=== PATIENT | female | born 1940 | race Caucasian/White ===

== ENCOUNTER 2017-04-27 10:31 | Inpatient (IN) | payer OTHER ==
[~2017-04-27] VITALS: Ht 160 cm; Wt 62.2 kg
[~2017-04-27 10:31] MED LIST: ALPR0.5T2 PO; ASPI81CT89 PO; ATOR10TA PO; CAR30 PO; DOCU-67 PO; FURO-572 PO; GABA100C PO; METF500T2 PO; METO-50 PO; VAS10 PO; WARF-18 PO; WARF1TAB PO
[2017-04-27 10:47] VITALS: BP 205/103
--- NOTE | 2017-04-27 10:51 | NUR ---
Patient ambulated to bed 6 with family. RN evaluating patient at bedside.
[2017-04-27] MEDS ORDERED: NITROGLYCERIN 0.4 MG TAB SL ONE (11:00)
--- NOTE | 2017-04-27 11:01 | NUR ---
PT PRESENTS TO ER W/C/O CHEST PAIN X3 DAYS. HX DM, HTN, ARTHRITIS. DENIES N/V/D; SKIN IS PINK/WARM/DRY; AAOX4 WITH EVEN AND STEADY GAIT; LUNGS CLEAR BL; HR EVEN AND REGULAR; PT DENIES ANY FEVER, SOB, OR COUGH AT THIS TIME; PATIENT STATES PAIN OF 7/10 AT THIS TIME; VSS; PATIENT POSITIONED FOR COMFORT; HOB ELEVATED; BEDRAILS UP X2; BED DOWN. ER MD MADE AWARE OF PT STATUS.
[2017-04-27 11:21] LABS: BASOPHILS # (AUTO) 0.2 K/uL (0.00-0.22); BASOPHILS % (AUTO) 3.1 % (0.0-2.0); EOSINOPHILS # (AUTO) 0.2 K/uL (0-0.4); EOSINOPHILS % (AUTO) 2.9 % (0.0-4.0); HEMATOCRIT 40.2 % (36-48); HEMOGLOBIN 13.1 g/dL (12.0-16.0); LYMPHOCYTES # (AUTO) 1.1 K/uL (2.5-16.5); LYMPHOCYTES % (AUTO) 19.6 % (20.5-51.1); MEAN CORPUSCULAR HEMOGLOBIN 30 pg (27-31); MEAN CORPUSCULAR HGB CONC 33 g/dL (33-37); MEAN CORPUSCULAR VOLUME 93 fL (80-94); MONOCYTES # (AUTO) 0.4 K/uL (0.8-1.0); MONOCYTES % (AUTO) 8.3 % (1.7-9.3); NEUTROPHILS # (AUTO) 3.5 K/uL (1.8-7.7); NEUTROPHILS % (AUTO) 66.1 % (42.2-75.2); PLATELET COUNT (AUTO) 254 K/uL (140-450); RED BLOOD CELL COUNT(AUTO) 4.33 MIL/uL (4.20-5.40); WHITE BLOOD COUNT (AUTO) 5.4 K/uL (4.8-10.8)
[2017-04-27 11:38] LABS: ANION GAP 13.1 (8-16); CARBON DIOXIDE 26.8 mmol/L (21-32); CHLORIDE 106 mmol/L (98-107); CREATININE 0.8 mg/dL (0.6-1.3); GLUCOSE 130 mg/dL (74-106); POTASSIUM 3.9 mmol/L (3.5-5.1); SODIUM SERUM 142 mmol/L (136-145); UREA NITROGEN, BLOOD 13 mg/dL (7-18)
[2017-04-27 11:44] LABS: ALBUMIN 4.3 g/dL (3.4-5.0); ASPARTATE AMINOTRANSFERASE 25 U/L (15-37); TOTAL BILIRUBIN 0.7 mg/dL (0.0-1.0)
[2017-04-27] MEDS ORDERED: ALPR0.5T2 PO (12:50)
[2017-04-27] MEDS ORDERED: AMIO200T2 PO (12:50)
[2017-04-27] MEDS ORDERED: DIGO0.1211 PO (12:50)
[2017-04-27] MEDS ORDERED: DOCU-246 PO (12:50)
[2017-04-27] MEDS ORDERED: [UNRECOGNIZED DRUG - CODE] PO (12:50)
[2017-04-27] MEDS ORDERED: ATOR10TA PO (12:50)
[2017-04-27] MEDS ORDERED: SENN-58 PO (12:50)
[2017-04-27] MEDS ORDERED: CARV12.5 PO (12:50)
[2017-04-27] MEDS ORDERED: [UNRECOGNIZED DRUG - CODE] PO (12:50)
[2017-04-27] MEDS ORDERED: WARF5TAB1 PO (12:50)
[2017-04-27] MEDS ORDERED: LISI10TA2 PO (12:50)
[2017-04-27] MEDS ORDERED: GABA100C PO (12:50)
[2017-04-27] MEDS ORDERED: METF500T PO (12:50)
[2017-04-27] MEDS ORDERED: MORPHINE SULFATE 2 MG/ML SYR IVP PRN (13:00)
[2017-04-27] MEDS ORDERED: ONDANSETRON 4 MG/2 ML VIAL IVP PRN (13:00)
[2017-04-27] MEDS ORDERED: LORazepam 2 MG/ML VIAL IVP PRN (13:00)
[2017-04-27] MEDS ORDERED: DEXTROSE 50% 50 ML SYR IVP PRN (13:10)
--- NOTE | 2017-04-27 13:30 | NUR ---
PT RESTING COMFORTABLY ON BED AT THIS TIME WITH FAMILY AT BEDSIDE, NO ACUTE DISTRESS NOTED AT THIS TIME, NO C/O CP, MINIMAL BACK PAIN 09/25, PENDING ADMIT AWAITING ROOM AVAILABILITY, FAMILY/PT MADE AWARE, WILL CONTINUE TO MONITOR
[2017-04-27] MEDS ORDERED: FUROSEMIDE 40 MG/4 ML VIAL IVP ONE (15:35)
[2017-04-27] MEDS ORDERED: POTASSIUM CHLORIDE 10 MEQ TABER PO ONE (15:35)
--- NOTE | 2017-04-27 15:50 | NUR ---
Patient will be admitted to care of DR WHITTINGTON. Admited to TELE. Will go to room 111B. Belongings list completed. Report to ELSIE SALAZAR.
[2017-04-27 16:50] VITALS: BP 177/84
--- NOTE | 2017-04-27 16:50 | NUR ---
PATIENT ARRIVED ON UNIT ON RCONRAD FROM ER. PATIENT IS AAOX4 AND SHOWS NO S/S OF ACUTE DISTRESS ON O2@ 2L NC. PATIENT DENIES PAIN AT THIS TIME. PATIENT ON TELE MONITOR. IV NOTED ON THE R AC. PATIENT EDUCATED ON USING CALL LIGHT WHEN ASSISTANCE IS NEEDED. PATIENT BED IS IN LOW POSITION. SKIN IS INTACT. PATIENT EDUCATED ABOUT POC FOR TODAY. WILL CONTINUE TO MONITOR.
[2017-04-27] MEDS: BLOOD GLUCOSE MONITORING 1 DEV DEV FS SCH ×2 (16:52→20:30)
[2017-04-27] MEDS ORDERED: CARVEDILOL 12.5 MG TAB PO SCH (17:00)
[2017-04-27] MEDS ORDERED: WARFARIN 5 MG TAB PO SCH (17:00)
[2017-04-27] MEDS: INSULIN LISPRO SLIDING SCALE 100 UNITS/ML VIAL SUBQ PRN (17:33)
[2017-04-27] MEDS: metFORMIN 500 MG TAB PO SCH (17:37)
--- NOTE | 2017-04-27 17:40 | NUR ---
ADMINISTERED SCHEDULED MEDICATIONS. PATIENT TOLERATED WELL. PATIENT DENIES PAIN AND SOB, WILL CONTINUE TO MONITOR.
--- NOTE | 2017-04-27 19:14 | NUR ---
PATIENT ON TELE AND HR IS SB AT 38 BPM. PATIENT IS ASYMPTOMATIC, DENIES PAIN, AND SOB. NOTIFIED DR WEISS AND ORDERED TO TX TO ICU WITH EXTERNAL PACEMAKER, DC COREG, DIGOXIN AND AMIODARONE AND PLACE PARAMETERS TO HOLD LISINOPRIL WHEN SBP < [address]. [address] ORDERS AND ENDORSE PATIENT TO USAMA ZIMMERMAN.
[2017-04-27 19:15] VITALS: BP 157/77
--- NOTE | 2017-04-27 19:20 | NUR ---
PATIENT AND FAMILY AWARE OF TX TO ICU DUE TO SINUS JOHANA HR. USAMA ZIMMERMAN WAS GIVEN REPORT AT BEDSIDE.
--- NOTE | 2017-04-27 19:30 | NUR ---
RECEIVED REPORT FROM AM NURSE. FAMILY AT BEDSIDE. PT RESTING IN BED, AOX4, ABLE TO VERBALIZE NEEDS, AMBULATORY WITH 1PERSON MINIMAL ASSIST. PT DENIES CHEST PAIN OR SOB. O2 2L NC ON, SPO2 96%, RR [address] UNLABORED. COOK DINNER IN PLACE. IV ACCESS ASYMPTOMATIC, PATENT AND INTACT, SALINE LOCKED AT THIS TIME. DISCUSSED AND REVIEWED PLAN OF CARE WITH PT. PT TO BE TRANSFERRED TO ICU. PT AND FAMILY VERBALIZED UNDERSTANDING. ALL NEEDS MET. SAFETY MEASURES ENSURED. CALL LIGHT WITHIN REACH. WILL CONTINUE TO MONITOR.
--- NOTE | 2017-04-27 20:29 | NUR ---
RECEIVED REPORT FROM TELE NURSE ELSIE FORRESTER. PT WILL BE TRANSFERRED TO ICU 5.
--- NOTE | 2017-04-27 20:30 | NUR ---
BLOOD SUGAR 69 AT THIS TIME. PT AWAKE AND ALERT, ASYMPTOMATIC. PT GIVEN EVENING SNACKS AT THIS TIME.
--- NOTE | 2017-04-27 20:55 | NUR ---
PT TRANSFERRED TO ICU WITH EXTERNAL PACEMAKER, CARDIAC MONITORING AND O2 2L NC ORDERED. PT TOLERATED WELL. ENDORSED PLAN OF CARE TO ICU NURSE.
--- NOTE | 2017-04-27 20:55 | NUR ---
RECEIVED PT IN THE UNIT VIA [place]. DAUGHTER AT BEDSIDE. PT IS AWAKE, ALERT, ORIENTED. NO SIGNS OF DISTRESS AT THIS TIME. ATTACHED TO GOLF COURSE KEEPER, PULSE OXIMETER. O2 AT 2LPM VIA NASAL CANNULA. IV ACCESS AT RIGHT AC 20G , SALINE LOCK, PATENT, INTACT. PT PLACE COMFORTABLY ON BED. STANDBY EXTERNAL PACER AT BEDSIDE. PT DENIES PAIN AT THIS TIME. BED IN LOW POSITION, SAFETY MEASURE ENSURE. WILL CONTINUE TO MONITOR.
[2017-04-27 21:00] VITALS: BP 175/84
[2017-04-27] MEDS ORDERED: GABAPENTIN 100 MG CAP PO SCH (21:00)
--- NOTE | 2017-04-27 21:16 | NUR ---
BSL 107MG/DL AT THIS TIME. WILL CONTINUE TO MONITOR.
[2017-04-27] MEDS: ALPRAZolam 0.5 MG TAB PO SCH (21:17)
[2017-04-27] MEDS: ATORVASTATIN 20 MG TAB PO SCH (21:18)
[2017-04-27] MEDS ORDERED: hydrALAZINE 20 MG/ML VIAL IVP PRN (21:20)
[2017-04-27] MEDS: NITROGLYCERIN 0.4 MG/HR PATCH TD SCH (21:57)
[2017-04-27 22:00] VITALS: BP 169/80
--- NOTE | 2017-04-27 23:53 | NUR ---
PT ASLEEP AT THIS TIME. NO SIGNS OF DISTRESS NOTED.
[2017-04-28] VITALS (9 sets, daily range): BP systolic 102–156; BP diastolic 50–87
--- NOTE | 2017-04-28 00:18 | NUR ---
NITRO PATCH REMOVED. BP 93/56. PT ASLEEP AT THIS TIME. WILL CONTINUE TO MONITOR.
--- NOTE | 2017-04-28 02:56 | NUR ---
PT ASLEEP AT THIS TIME. WILL CONTINUE TO MONITOR.
--- NOTE | 2017-04-28 05:11 | NUR ---
PT ASLEEP AT THIS TIME. WILL CONTINUE TO MONITOR.
[2017-04-28 05:13] LABS: BASOPHILS # (AUTO) 0.2 K/uL (0.00-0.22); BASOPHILS % (AUTO) 2.4 % (0.0-2.0); EOSINOPHILS # (AUTO) 0.1 K/uL (0-0.4); EOSINOPHILS % (AUTO) 1.9 % (0.0-4.0); HEMOGLOBIN 13.2 g/dL (12.0-16.0); LYMPHOCYTES # (AUTO) 1.7 K/uL (2.5-16.5); LYMPHOCYTES % (AUTO) 24.9 % (20.5-51.1); MEAN CORPUSCULAR HEMOGLOBIN 30 pg (27-31); MEAN CORPUSCULAR HGB CONC 33 g/dL (33-37); MEAN CORPUSCULAR VOLUME 92 fL (80-94); MONOCYTES # (AUTO) 0.7 K/uL (0.8-1.0); NEUTROPHILS % (AUTO) 60.8 % (42.2-75.2); PLATELET COUNT (AUTO) 303 K/uL (140-450); RED BLOOD CELL COUNT(AUTO) 4.33 MIL/uL (4.20-5.40); RED CELL DISTRIBUTION WIDTH 13.6 % (11.6-13.7); WHITE BLOOD COUNT (AUTO) 6.7 K/uL (4.8-10.8)
[2017-04-28 05:27] LABS: ANION GAP 11.3 (8-16); CARBON DIOXIDE 29.6 mmol/L (21-32); CHLORIDE 104 mmol/L (98-107); CREATININE 0.9 mg/dL (0.6-1.3); GLUCOSE 100 mg/dL (74-106); POTASSIUM 3.9 mmol/L (3.5-5.1); SODIUM SERUM 141 mmol/L (136-145); UREA NITROGEN, BLOOD 16 mg/dL (7-18)
[2017-04-28] MEDS: BLOOD GLUCOSE MONITORING 1 DEV DEV FS SCH ×4 (06:37→20:14)
--- NOTE | 2017-04-28 07:19 | NUR ---
REPORT GIVEN TO ELSIE CARR FOR CONTINUITY OF CARE.
--- NOTE | 2017-04-28 07:20 | NUR ---
RECEIVED REPORT FROM ELSIE LAU. NO SIGNS OF ACUTE DISTRESS AT THIS TIME. PT DENIES PAIN. PT IS AAOX4. PT IS ON O2 2L/MIN NC. IV TO RIGHT AC #20, PATENT AND INTACT, SL. PT IS CURRENTLY SINUS BRADYCARDIA ON THE MONITOR, ASYMPTOMATIC. SKIN IS INTACT. SAFETY PRECAUTIONS IN PLACE WITH BED IN LOWEST POSITION AND SIDE RAILS UP. CALL LIGHT WITHIN REACH. WILL CONTINUE TO MONITOR. Addendum: 04/28/17 at 0918 by Meg Gaspar RN CHARTED PT IS SINUS BRADYCARDIA ON THE MONITOR IN ERROR, PT IS A FIB. Addendum: 04/28/17 at 1120 by Meg Gaspar RN NOTED AMPUTATION TO LEFT THIRD FINGER
--- NOTE | 2017-04-28 07:59 | NUR ---
RECEIVED CALLBACK FROM DR. ADAM, NEW ORDERS RECEIVED.
--- NOTE | 2017-04-28 07:59 | NUR ---
PAGED DR. WHITTINGTON REGARDING LOW MAGNESIUM: 1.7, INFORMED DR. ADAM IS BOX PRINTING MACHINE OPERATOR. AWAITING CALLBACK.
[2017-04-28] MEDS: metFORMIN 500 MG TAB PO SCH ×2 (08:13→16:52)
[2017-04-28] MEDS: NITROGLYCERIN 0.4 MG/HR PATCH TD SCH (08:14)
[2017-04-28] MEDS: DOCUSATE SODIUM 100 MG GELCAP PO SCH (08:14)
[2017-04-28] MEDS: MULTIVITAMIN/MINERALS 1 TAB PO SCH (08:14)
--- NOTE | 2017-04-28 08:19 | NUR ---
CHECKED HR: 68, BP: 121/50. ADMINISTERED MEDICATION ORDERED. PT TOLERATED WELL.
--- NOTE | 2017-04-28 08:41 | NUR ---
PATIENT HAS BEEN SCREENED AND CATEGORIZED MODERATE NUTRITION RISK. PATIENT WILL BE SEEN WITHIN 3-5 DAYS OF ADMISSION. 04/30/17-05/02/[address]
[2017-04-28] MEDS ORDERED: NITROGLYCERIN 0.4 MG/HR PATCH TD SCH (09:00)
[2017-04-28] MEDS ORDERED: LISINOPRIL 10 MG TAB PO SCH (09:00)
[2017-04-28] MEDS ORDERED: AMIODARONE 200 MG TAB PO SCH (09:00)
[2017-04-28] MEDS ORDERED: ENOXAPARIN 40 MG/0.4 ML SYR SUBQ SCH (09:00)
[2017-04-28] MEDS ORDERED: DIGOXIN 0.125 MG TAB PO SCH (09:00)
[2017-04-28] MEDS ORDERED: MAG SULF 2000 MG/WATER PREMIX 50 ML IV SCH (09:00)
--- NOTE | 2017-04-28 09:55 | NUR ---
PT TOLERATED MEDS WELL. PT'S DAUGHTER PRESENT AT BEDSIDE.
--- NOTE | 2017-04-28 10:27 | NUR ---
DR. WHITTINGTON IN TO SEE PT. WILL FOLLOW UP ON ORDERS.
[2017-04-28] MEDS: INSULIN LISPRO SLIDING SCALE 100 UNITS/ML VIAL SUBQ PRN (11:22)
--- NOTE | 2017-04-28 11:23 | NUR ---
PT TOLERATED MEDS WELL.
--- NOTE | 2017-04-28 12:11 | NUR ---
CM NOTE INITIAL REVIEW FAXED TO [facility] / FAX# [phone], ATTN: ANNY #[phone]
--- NOTE | 2017-04-28 12:41 | NUR ---
PT. BECOME DIAPHORETIC BP DROP TO83/66 HR 63
--- NOTE | 2017-04-28 13:06 | NUR ---
CHECKED BP: 107/60, HR: 56. PT IS ASYMPTOMATIC. DR. WEISS AND DR. ADAM AWARE OF PT'S RECENT CHANGE IN VS. NEW ORDERS RECEIVED.
[2017-04-28] MEDS ORDERED: NOREPINEPHRINE 4 MG in DEXTROSE 5% 250 ML IV PRN (13:10)
[2017-04-28 13:13] LABS: CREATINE KINASE MB 0.4 ng/mL (0-3.6)
[2017-04-28] MEDS ORDERED: NACL 0.9% 500 ML IV SCH (13:20)
--- NOTE | 2017-04-28 13:41 | NUR ---
DR. WEISS IN TO SEE PT. WILL FOLLOW UP ON ORDERS
[2017-04-28] MEDS ORDERED: PANTOPRAZOLE 40 MG INJ VIAL IVP SCH (13:54)
[2017-04-28] MEDS: NACL 0.9% 1,000 ML IV SCH (14:17)
--- NOTE | 2017-04-28 14:21 | NUR ---
PT TOLERATED MEDS WELL.
[2017-04-28 14:42] LABS: BASOPHILS # (AUTO) 0.1 K/uL (0.00-0.22); BASOPHILS % (AUTO) 1.5 % (0.0-2.0); EOSINOPHILS # (AUTO) 0.1 K/uL (0-0.4); EOSINOPHILS % (AUTO) 1.6 % (0.0-4.0); HEMATOCRIT 40.7 % (36-48); HEMOGLOBIN 13.4 g/dL (12.0-16.0); LYMPHOCYTES # (AUTO) 1.1 K/uL (2.5-16.5); LYMPHOCYTES % (AUTO) 13.6 % (20.5-51.1); MEAN CORPUSCULAR HEMOGLOBIN 30 pg (27-31); MEAN CORPUSCULAR HGB CONC 33 g/dL (33-37); MEAN CORPUSCULAR VOLUME 92 fL (80-94); MONOCYTES # (AUTO) 0.3 K/uL (0.8-1.0); MONOCYTES % (AUTO) 3.6 % (1.7-9.3); NEUTROPHILS # (AUTO) 6.6 K/uL (1.8-7.7); NEUTROPHILS % (AUTO) 79.7 % (42.2-75.2); PLATELET COUNT (AUTO) 284 K/uL (140-450); RED BLOOD CELL COUNT(AUTO) 4.43 MIL/uL (4.20-5.40); RED CELL DISTRIBUTION WIDTH 13.6 % (11.6-13.7); WHITE BLOOD COUNT (AUTO) 8.2 K/uL (4.8-10.8)
--- NOTE | 2017-04-28 14:53 | NUR ---
CHECKED ON PT. RESTING AT THIS TIME, AROUSABLE. CALL LIGHT WITHIN REACH. WILL CONTINUE TO MONITOR.
[2017-04-28 14:55] LABS: CARBON DIOXIDE 30.3 mmol/L (21-32); CHLORIDE 105 mmol/L (98-107); CREATININE 1.2 mg/dL (0.6-1.3); GLUCOSE 107 mg/dL (74-106); POTASSIUM 4.3 mmol/L (3.5-5.1); SODIUM SERUM 141 mmol/L (136-145); UREA NITROGEN, BLOOD 23 mg/dL (7-18)
--- NOTE | 2017-04-28 16:53 | NUR ---
PT TOLERATED MEDS WELL. FRIEND PRESENT AT BEDSIDE. CALL LIGHT WITHIN REACH.
[2017-04-28] MEDS ORDERED: WARFARIN 5 MG TAB PO SCH (17:00)
--- NOTE | 2017-04-28 17:55 | NUR ---
PT UP AND EATING DINNER WITH NO ISSUES. PT'S FRIEND AND DAUGHTER PRESENT AT BEDSIDE.
--- NOTE | 2017-04-28 19:04 | NUR ---
ENDORSED CARE TO ELSIE CARR. PT IN STABLE CONDITION.
--- NOTE | 2017-04-28 19:30 | NUR ---
ASSUMED CARE OF PT.INITIAL ASSESSMENT COMPLETED.PT AWAKE ALERT AND ORIENTED. ATRIAL FIB ON MONITOR.ON 02NC AT 2LPM,NO SOB NOTED. PERIPHERAL IV TO RT AC G20 INTACT INFUSING ORDERED IVF.PT ABLE TO MOVE ALL EXTREMITIES WITH MILD WEAKNESS TO BLE.PT DENIES CHEST PAIN.WILL CONTINUE TO MONITOR PT.
[2017-04-28] MEDS: ATORVASTATIN 20 MG TAB PO SCH (20:11)
[2017-04-28] MEDS: ALPRAZolam 0.5 MG TAB PO SCH (20:11)
[2017-04-28] MEDS ORDERED: GABAPENTIN 300 MG CAP PO SCH (21:00)
--- NOTE | 2017-04-28 21:00 | NUR ---
ALL DUE MEDS GIVEN.FAMILY AT BEDSIDE.UPDATED ON PTS PRESENT CONDITION AND PLAN OF CARE.QUESTIONS ANSWERED
[2017-04-29] VITALS: BP 113/67
--- NOTE | 2017-04-29 | NUR ---
PT ASLEEP;EASILY AROUSABLE.DENIES CHEST PAIN.NO RESP DISTRESS NOTED. STILL AFIB ON MONITOR
[2017-04-29] MEDS: NACL 0.9% 1,000 ML IV SCH (01:35)
--- NOTE | 2017-04-29 01:43 | NUR ---
pt asleep;easily arousable.no signs of distress noted.denies chest pain.repositioned
[2017-04-29 04:00] VITALS: BP 114/62
--- NOTE | 2017-04-29 04:00 | NUR ---
pts condition remains unchanged.no sob noted.denies chest pain.repositioned
--- NOTE | 2017-04-29 06:27 | NUR ---
pt asleep;voided freely using bedpan.still on 02nc at 2lpm.no resp distress noted.denies pain
[2017-04-29] MEDS ORDERED: PANTOPRAZOLE 40 MG TABEC PO SCH (06:30)
--- NOTE | 2017-04-29 07:15 | NUR ---
RECEIVED REPORT FROM LILLY. ASSUMED CARE OF PT. PT CURRENTLY SLEEPING COMFORTABLY, BUT EASILY AROUSABLE. A. FIB ON MONITOR. ON 02 2LPM / NC, O2 SAT 96%. DENIES CHEST PAIN. NO SOB OR ACUTE DISTRESS NOTED. PERIPHERAL IV TO RIGHT AC INTACT AND INFUSING ORDERED IVF. ABD SOFT, NON-TENDER, BOWEL SOUNDS PRESENT X 4 QUADRANTS. ABLE TO MOVE ALL EXTREMITIES. WILL CONTINUE TO MONITOR.
[2017-04-29 07:23] LABS: PROTHROMBIN TIME 23.5 secs (10.8-13.4)
[2017-04-29] MEDS: BLOOD GLUCOSE MONITORING 1 DEV DEV FS SCH ×2 (07:44→11:39)
[2017-04-29 08:00] VITALS: BP 138/60
[2017-04-29] MEDS: DOCUSATE SODIUM 100 MG GELCAP PO SCH (08:18)
[2017-04-29] MEDS: MULTIVITAMIN/MINERALS 1 TAB PO SCH (08:18)
[2017-04-29] MEDS: metFORMIN 500 MG TAB PO SCH (08:18)
--- NOTE | 2017-04-29 08:20 | NUR ---
ADMINISTERED MEDICATIONS ORDERED. PT TOLERATED WELL. NO PROBLEM SWALLOWING. WILL CONTINUE TO MONITOR.
[2017-04-29] MEDS: NITROGLYCERIN 0.4 MG/HR PATCH TD SCH (08:29)
--- NOTE | 2017-04-29 08:35 | NUR ---
RECEIVED ON SUPPLEMENTAL OXYGEN AT 2 LPM VIA NC ON AND FUNCTIONING WELL TOLERATING WITHOUT INCIDENT AWAKE AND ALERT RESPONSIVE TO FABRIC LAY OUT WORKER VERBAL COMMANDS
[2017-04-29] MEDS ORDERED: LISINOPRIL 10 MG TAB PO SCH (09:00)
[2017-04-29] MEDS ORDERED: PROBIOTIC SCREEN 1 EA MISC MC PRN (09:50)
--- NOTE | 2017-04-29 10:04 | NUR ---
FAMILY AT BEDSIDE. PT. TALKING TO FAMILY. NO SOB OR ACUTE DISTRESS NOTED. WILL CONTINUE TO MONITOR.
--- NOTE | 2017-04-29 11:00 | NUR ---
VOIDED FREELY USING BEDPAN. URINE CLEAR, DARK YELLOW, NO SEDIMENTS NOTED. REPOSITIONED. PT TOLERATED WELL. NO SOB OR ACUTE DISTRESS NOTED. WILL CONTINUE TO MONITOR.
--- NOTE | 2017-04-29 11:50 | NUR ---
CM NOTE CONCURRENT REVIEW FAXED TO [facility] / FAX# [phone], ATTN: ANNY #[phone]
[2017-04-29 12:00] VITALS: BP 119/70
--- NOTE | 2017-04-29 13:06 | NUR ---
CHECKED ON PT. RESTING COMFORTABLY AT THIS TIME. DAUGHTER AT BEDSIDE. CALL LIGHT WITHIN REACH. WILL CONTINUE TO MONITOR.
--- NOTE | 2017-04-29 13:50 | NUR ---
DR. WEISS AT ICU TO SEE AND EXAMINE PT. SPOKE WITH DAUGHTER.
--- NOTE | 2017-04-29 13:55 | NUR ---
DR. WHITTINGTON AT ICU TO SEE AND EXAMINE PT. WILL F/U WITH NEW ORDERS.
--- NOTE | 2017-04-29 14:00 | NUR ---
PT VOIDED WITHOUT ANY DIFFICULTY. CLEANED AND REPOSITIONED. PT TOLERATED WELL. DAUGHTER AT BEDSIDE. NO SOB OR ACUTE DISTRESS NOTED.
[2017-04-29] MEDS ORDERED: ISOS10TA9 PO (14:10)
[2017-04-29] MEDS ORDERED: FURO-572 PO (14:12)
[2017-04-29 14:37] VITALS: BP 157/49
[2017-04-29 15:00] VITALS: BP 120/68
--- NOTE | 2017-04-29 16:30 | NUR ---
DISCHARGED PT HOME PER MD ORDER. NEW PRESCRIPTIONS: ISORDIL AND LASIX GIVEN. DISCHARGE INSTRUCTIONS/EDUCATION AND FOLLOW-UP INSTRUCTIONS WITH PCP AND DREDGE ENGINEER GIVEN. PERSONAL BELONGINGS CHECKED AND SIGNED BY DAUGHTER. PT DISCHARGED VIA WHEELCHAIR ACCOMPANIED BY DAUGHTER. PT WAS AAOX4. NO SOB OR ACUTE DISTRESS NOTED UPON DISCHARGE. Addendum: 04/29/17 at 1648 by Felicia Gibbs RN PT WAS DISCHARGED AT 1550.
== END 2017-04-29 15:50 | disposition home or self-care (01) | DRG 194 ==
LOC: MED 10:31 → MTU 12:59 → MIC 20:45
PROVIDERS: ADMIT Hospitalist; ATTEND Hospitalist
DX: I11.0 Hypertensive heart disease with heart failure (principal); R00.1 Bradycardia, unspecified; E83.42 Hypomagnesemia; E11.9 Type 2 diabetes mellitus without complications; I50.43 Acute on chronic combined systolic (congestive) and diastolic (congestive) heart failure; R07.9 Chest pain, unspecified; I25.2 Old myocardial infarction; I25.5 Ischemic cardiomyopathy; I25.10 Atherosclerotic heart disease of native coronary artery without angina pectoris; I48.2 Chronic atrial fibrillation; E78.5 Hyperlipidemia, unspecified; K21.9 Gastro-esophageal reflux disease without esophagitis; G89.29 Other chronic pain; I45.9 Conduction disorder, unspecified; I16.0 Hypertensive urgency; Z79.899 Other long term (current) drug therapy; Z79.01 Long term (current) use of anticoagulants; Z88.0 Allergy status to penicillin
CPT/HCPCS: 36415; 71010; 72100; 80048; 80053; 80162; 82550; 82553; 82948; 83735; 83880; 84484; 85025; 85610; 85730; 87081; 93005; 96374; 99285; C9113; J1815; J1940; J2405; J3475; J3490; J7030; J7060; Q0092

== ENCOUNTER 2017-08-04 15:37 | Inpatient (IN) | payer OTHER ==
[~2017-08-04] VITALS: Ht 162.6 cm; Wt 69.4 kg
[~2017-08-04 15:37] MED LIST changes: -ASPI81CT89 PO; -CAR30 PO; +DOCU-246 PO; -DOCU-67 PO; +ISOS10TA9 PO; +LISI10TA2 PO; +METF500T PO; -METF500T2 PO; -METO-50 PO; +SENN-58 PO; -VAS10 PO; -WARF-18 PO; -WARF1TAB PO; +WARF5TAB1 PO; +[UNRECOGNIZED DRUG - CODE] PO; +[UNRECOGNIZED DRUG - CODE] PO
[2017-08-04 15:56] VITALS: BP 130/85
[2017-08-04] MEDS ORDERED: NACL 0.9% 1,000 ML IV ONE (16:10)
--- NOTE | 2017-08-04 16:15 | NUR ---
PATIENT PRESENTS TO ED WITH C/O MID UPPER ABD PAIN, N/V/D SINCE LAST NIGHT VOMITING X1 EPISODE, DIARRHEA X 6 EPISODES HX: HTN, DM, MS 2 YEARS AGO, HIGH CHOLESTEROL; PT STATES . DENIES N/V/D; SKIN IS PINK/WARM/DRY; AAOX4 WITH EVEN AND STEADY GAIT; LUNGS CLEAR BL; HR EVEN AND REGULAR; PT DENIES ANY FEVER, CP, SOB, OR COUGH AT THIS TIME; PATIENT STATES PAIN OF 7/10 AT THIS TIME; VSS; PATIENT POSITIONED FOR COMFORT; HOB ELEVATED; BEDRAILS UP X2; BED DOWN. ER MD MADE AWARE OF PT STATUS.
[2017-08-04 16:36] LABS: BASOPHILS # (AUTO) 0.3 K/uL (0.00-0.22); EOSINOPHILS # (AUTO) 0.1 K/uL (0-0.4); HEMATOCRIT 44.5 % (36-48); HEMOGLOBIN 14.2 g/dL (12.0-16.0); LYMPHOCYTES # (AUTO) 0.5 K/uL (2.5-16.5); MEAN CORPUSCULAR HEMOGLOBIN 29 pg (27-31); MEAN CORPUSCULAR HGB CONC 32 g/dL (33-37); MEAN CORPUSCULAR VOLUME 90 fL (80-94); MONOCYTES # (AUTO) 0.2 K/uL (0.8-1.0); NEUTROPHILS # (AUTO) 11.6 K/uL (1.8-7.7); PLATELET COUNT (AUTO) 338 K/uL (140-450); RED BLOOD CELL COUNT(AUTO) 4.95 MIL/uL (4.20-5.40); RED CELL DISTRIBUTION WIDTH 12.5 % (11.6-13.7); WHITE BLOOD COUNT (AUTO) 12.7 K/uL (4.8-10.8)
[2017-08-04 16:53] LABS: ALBUMIN 3.7 g/dL (3.4-5.0); ANION GAP 15.8 (8-16); ASPARTATE AMINOTRANSFERASE 16 U/L (15-37); CARBON DIOXIDE 26.6 mmol/L (21-32); CHLORIDE 104 mmol/L (98-107); CREATININE 0.9 mg/dL (0.6-1.3); GLUCOSE 132 mg/dL (74-106); POTASSIUM 4.4 mmol/L (3.5-5.1); SODIUM SERUM 142 mmol/L (136-145); UREA NITROGEN, BLOOD 20 mg/dL (7-18)
[2017-08-04 16:56] LABS: PROTHROMBIN TIME 11.6 secs (10.8-13.4)
[2017-08-04] MEDS ORDERED: DILTIAZEM 25 MG/5 ML VIAL IVP ONE (17:20)
[2017-08-04] MEDS ORDERED: ASPIRIN 81 MG TAB.CHEW PO ONE (17:20)
[2017-08-04] MEDS ORDERED: fentaNYL 0.05 MG/ML VIAL IM ONE (17:25)
[2017-08-04 17:29] LABS: APPEARANCE,URINE CLEAR (CLEAR); BILIRUBIN,URINE 1+ (NEGATIVE); BLOOD, URINE NEGATIVE (NEGATIVE); COLOR,URINE YELLOW (YELLOW); LEUKOCYTE ESTERASE ,URINE NEGATIVE (NEGATIVE); NITRITE, URINE NEGATIVE (NEGATIVE); PH,URINE 6.5 (5.0-9.0); UGLUCOSE NEGATIVE (NEGATIVE)
[2017-08-04] MEDS ORDERED: LORazepam 2 MG/ML VIAL IVP PRN (18:20)
[2017-08-04] MEDS ORDERED: ACETAMINOPHEN 325 MG TAB PO PRN (18:20)
[2017-08-04] MEDS ORDERED: MORPHINE SULFATE 4 MG/ML SYR IVP PRN (18:20)
[2017-08-04] MEDS ORDERED: MORPHINE SULFATE 2 MG/ML SYR IVP PRN (18:20)
[2017-08-04] MEDS ORDERED: ONDANSETRON 4 MG/2 ML VIAL IVP PRN (18:20)
--- NOTE | 2017-08-04 19:09 | NUR ---
Patient will be admitted to care of DR SUAREZ. Admited to TELE. Will go to room 110B. Belongings list completed. Report to ELSIE DUNAWAY.
--- NOTE | 2017-08-04 19:20 | NUR ---
ADMITTED THIS 77 YEAR OLD FEMALE FROM [facility] WITH CC OF N/V, DIARRHEA AND MILD DIZZINESS, AMBULATED TO BED WITH MINIMAL ASSIST, ASSESSMENT DONE, VITAL SIGNS STABLE, A-FIB ON TELE, DENIES ANY PAIN, NO N/V AT THIS TIME, PT AAOX4, SURINAMESE SPEAKING ONLY, HX OBTAINED FROM WILLIAM DAUGHTER, ORIENTED TO ROOM AND CALL LIGHT, SAFETY MEASURES IN PLACE, CALL LIGHT WITHIN REACH.
[2017-08-04 19:25] LABS: PROTHROMBIN TIME 11.6 secs (10.8-13.4)
[2017-08-04 19:30] VITALS: BP 144/65
[2017-08-04] MEDS: GABAPENTIN 100 MG CAP PO SCH (20:54)
[2017-08-04] MEDS: ATORVASTATIN 20 MG TAB PO SCH (20:54)
[2017-08-04] MEDS: ISOSORBIDE DINITRATE 10 MG TAB PO SCH (20:54)
[2017-08-04] MEDS: DILTIAZEM 60 MG TAB PO SCH (20:54)
[2017-08-04] MEDS: ALPRAZolam 0.5 MG TAB PO SCH (20:55)
[2017-08-04] MEDS ORDERED: INFLUENZA VIRUS VACCINE QUAD 0.5 ML SYR IMVAC PRN (21:30)
--- NOTE | 2017-08-04 22:30 | NUR ---
AMBULATED TO BR WITH ASSIST, VOIDED FREELY, MONITORED CLOSELY.
[2017-08-05] VITALS: BP 117/67
--- NOTE | 2017-08-05 | NUR ---
PT SLEEPING, EASILY AROUSABLE, VITAL SIGNS STABLE, CONTROLLED A-FIB ON TELE, ASYMPTOMATIC, CONTINUE TO MONITOR CLOSELY.
[2017-08-05] MEDS ORDERED: INSULIN LISPRO SLIDING SCALE 100 UNITS/ML VIAL SUBQ PRN (01:05)
[2017-08-05] MEDS ORDERED: DEXTROSE 50% 50 ML SYR IVP PRN (01:05)
[2017-08-05 02:47] LABS: CREATINE KINASE MB 0.4 ng/mL (0-3.6)
[2017-08-05 04:00] VITALS: BP 119/62
--- NOTE | 2017-08-05 04:00 | NUR ---
PT SLEEPING, EASILY AROUSABLE, VITAL SIGNS STABLE, DENIES ANY PAIN, NO NAUSEA NOTED, ASSISTED BY TAX TECHNICIAN TO BR, MONITORED CLOSELY/
--- NOTE | 2017-08-05 05:50 | NUR ---
AM LABS DRAWN, BLOOD SUGAR CHECKED WITH 87 RESULT, DENIES ANY PAIN, NO N/V NOTED, NO EPISODE OF DIARRHEA THE WHOLE SHIFT, A-FIB ON TELE, MONITORED CLOSELY.
[2017-08-05] MEDS: BLOOD GLUCOSE MONITORING 1 DEV DEV FS SCH ×4 (07:01→20:06)
--- NOTE | 2017-08-05 07:10 | NUR ---
PT AWAKE, NO DISTRESS NOTED, REPORT GIVEN TO ESTER FOR CONTINUITY OF CARE.
[2017-08-05 07:12] LABS: BASOPHILS # (AUTO) 0.1 K/uL (0.00-0.22); EOSINOPHILS # (AUTO) 0.1 K/uL (0-0.4); EOSINOPHILS % (AUTO) 1.8 % (0.0-4.0); HEMOGLOBIN 11.9 g/dL (12.0-16.0); LYMPHOCYTES # (AUTO) 0.6 K/uL (2.5-16.5); LYMPHOCYTES % (AUTO) 10.5 % (20.5-51.1); MEAN CORPUSCULAR HEMOGLOBIN 30 pg (27-31); MEAN CORPUSCULAR HGB CONC 33 g/dL (33-37); MEAN CORPUSCULAR VOLUME 91 fL (80-94); MONOCYTES # (AUTO) 0.4 K/uL (0.8-1.0); NEUTROPHILS # (AUTO) 4.7 K/uL (1.8-7.7); NEUTROPHILS % (AUTO) 78.7 % (42.2-75.2); PLATELET COUNT (AUTO) 255 K/uL (140-450); RED BLOOD CELL COUNT(AUTO) 3.98 MIL/uL (4.20-5.40); RED CELL DISTRIBUTION WIDTH 12.8 % (11.6-13.7); WHITE BLOOD COUNT (AUTO) 5.9 K/uL (4.8-10.8)
--- NOTE | 2017-08-05 07:13 | NUR ---
RECEIVED REPORT FROM ASSISTANT PROFESSOR OF CHEMISTRY NURSE, PT IS RESTING IN BED A/OX4, AMBULATES WITH ASSIST, IV IS ON THE RT AC, PATENT, INTACT, FLUSHING WELL, HEP LOCK, SKIN IS INTACT, NO S/S OF RESPIRATORY DISTRESS OR DISCOMFORT NOTED, DISCUSSED PLAN OF CARE WITH PT, PT VERBALIZED UNDERSTANDING, SAFETY/FALL PRECAUTIONS ARE IN PLACE, CALL LIGHT IS WITHIN REACH, WILL CONTINUE TO MONITOR.
[2017-08-05 07:21] LABS: PROTHROMBIN TIME 12.1 secs (10.8-13.4)
[2017-08-05 07:29] LABS: ALBUMIN 3.1 g/dL (3.4-5.0); ANION GAP 11.6 (8-16); ASPARTATE AMINOTRANSFERASE 17 U/L (15-37); CARBON DIOXIDE 27.3 mmol/L (21-32); CHLORIDE 107 mmol/L (98-107); CREATININE 0.8 mg/dL (0.6-1.3); GLUCOSE 92 mg/dL (74-106); MAGNESIUM 1.8 mg/dL (1.8-2.4); POTASSIUM 3.9 mmol/L (3.5-5.1); SODIUM SERUM 142 mmol/L (136-145); UREA NITROGEN, BLOOD 18 mg/dL (7-18)
[2017-08-05 08:00] VITALS: BP 137/85
[2017-08-05] MEDS: LISINOPRIL 10 MG TAB PO SCH (08:19)
[2017-08-05] MEDS: DILTIAZEM 60 MG TAB PO SCH ×2 (08:19→20:06)
[2017-08-05] MEDS: ASPIRIN 81 MG TAB.CHEW PO SCH (08:19)
[2017-08-05] MEDS: ISOSORBIDE DINITRATE 10 MG TAB PO SCH ×2 (08:20→20:08)
--- NOTE | 2017-08-05 08:20 | NUR ---
DUE MEDICATIONS GIVEN, PT TOLERATED WELL, CALL LIGHT WITHIN REACH.
[2017-08-05] MEDS ORDERED: SENNA 8.6 MG TAB PO SCH (09:00)
--- NOTE | 2017-08-05 09:19 | NUR ---
PATIENT HAS BEEN SCREENED AND CATEGORIZED MODERATE NUTRITION RISK FOR GI PROBLEMS. PATIENT WILL BE SEEN WITHIN 3-5 DAYS OF ADMISSION. 08/07/17-08/09/[address]
[2017-08-05 10:33] LABS: CREATINE KINASE MB 0.3 ng/mL (0-3.6)
--- NOTE | 2017-08-05 10:34 | NUR ---
PT RESTING IN BED, NO S/S OF RESPIRATORY DISTRESS OR DISCOMFORT NOTED, FAMILY IS AT PT BEDSIDE, CALL LIGHT WITHIN REACH.
--- NOTE | 2017-08-05 10:43 | NUR ---
RECEIVED PHONE CALL FROM JUVENAL AT THE LAB, CURRENT TROPONIN IS 0.085, TROPONIN TRENDING DOWN.
[2017-08-05] MEDS ORDERED: DOCUSATE SODIUM 100 MG GELCAP PO SCH (11:00)
[2017-08-05 12:00] VITALS: BP 122/78
--- NOTE | 2017-08-05 12:30 | NUR ---
DR. Lorenzo CASAREZ HERE TO SEE PT.
--- NOTE | 2017-08-05 14:22 | NUR ---
CM NOTE INITIAL REVIEW FAXED TO [facility] / FAX# [phone], ATTN: JANUARY #[phone]
--- NOTE | 2017-08-05 14:50 | NUR ---
PT SLEEPING IN BED AT THIS TIME, PATIENT'S DAUGHTER IS AT BEDSIDE, CALL LIGHT WITHIN REACH.
[2017-08-05 16:00] VITALS: BP 128/76
--- NOTE | 2017-08-05 16:20 | NUR ---
PT SLEEPING IN BED AT THIS TIME.
[2017-08-05] MEDS ORDERED: WARFARIN 5 MG TAB PO SCH (17:00)
[2017-08-05] MEDS ORDERED: WARFARIN 5 MG, WARFARIN 1 MG PO SCH ×2 (17:00)
--- NOTE | 2017-08-05 19:15 | NUR ---
ENDORSED PT TO SPECIAL MAKEUP FX ARTIST INSTRUCTOR NURSE FOR CONTINUITY OF CARE, PT STABLE AT THIS TIME.
--- NOTE | 2017-08-05 19:16 | NUR ---
RECEIVED REPORT AT BEDSIDE FROM DAY SHIFT RN. PT IS A/OX4 ON ROOM AIR. PT HAS A 20G IV TO RIGHT AC, SL. SKIN INTACT. PT AMBULATES WITH ASSISTANCE. SAFETY PRECAUTIONS IN PLACE. UPDATED BOARD. VITAL SIGNS WITHIN NORMAL LIMITS. PT IN STABLE CONDITION, NO SIGNS OF DISTRESS NOTED. BED IN LOW POSITION, CALL LIGHT WITHIN REACH. WILL CONTINUE TO MONITOR.
[2017-08-05 20:00] VITALS: BP 148/91
[2017-08-05] MEDS: GABAPENTIN 100 MG CAP PO SCH (20:08)
[2017-08-05] MEDS: ATORVASTATIN 20 MG TAB PO SCH (20:08)
[2017-08-05] MEDS: ALPRAZolam 0.5 MG TAB PO SCH (20:09)
--- NOTE | 2017-08-05 20:12 | NUR ---
ADMINISTERED ORDERED MEDICATIONS, PT TOLERATED WELL. BLOOD SUGAR 157, PT REFUSED INSULIN BECAUSE SHE STATES SHE "JUST ATE". FAMILY AT BEDSIDE. WILL CONTINUE TO MONITOR.
[2017-08-06] VITALS: BP 131/62
--- NOTE | 2017-08-06 00:15 | NUR ---
VITAL SIGNS WITHIN NORMAL LIMITS. PT IN STABLE CONDITION, NO SIGNS OF DISTRESS NOTED. BED IN LOW POSITION, CALL LIGHT WITHIN REACH. WILL CONTINUE TO MONITOR.
[2017-08-06 04:00] VITALS: BP 114/67
--- NOTE | 2017-08-06 04:00 | NUR ---
VITAL SIGNS WITHIN NORMAL LIMITS. PT IN STABLE CONDITION, NO SIGNS OF DISTRESS NOTED. BED IN LOW POSITION, CALL LIGHT WITHIN REACH. WILL CONTINUE TO MONITOR.
[2017-08-06 06:34] LABS: BASOPHILS # (AUTO) 0.1 K/uL (0.00-0.22); BASOPHILS % (AUTO) 3.5 % (0.0-2.0); EOSINOPHILS # (AUTO) 0.1 K/uL (0-0.4); EOSINOPHILS % (AUTO) 2.2 % (0.0-4.0); HEMATOCRIT 32.6 % (36-48); HEMOGLOBIN 10.6 g/dL (12.0-16.0); LYMPHOCYTES % (AUTO) 25.8 % (20.5-51.1); MEAN CORPUSCULAR HEMOGLOBIN 29 pg (27-31); MEAN CORPUSCULAR HGB CONC 32 g/dL (33-37); MEAN CORPUSCULAR VOLUME 90 fL (80-94); MONOCYTES # (AUTO) 0.6 K/uL (0.8-1.0); MONOCYTES % (AUTO) 15.7 % (1.7-9.3); NEUTROPHILS % (AUTO) 52.8 % (42.2-75.2); PLATELET COUNT (AUTO) 257 K/uL (140-450); RED BLOOD CELL COUNT(AUTO) 3.61 MIL/uL (4.20-5.40); RED CELL DISTRIBUTION WIDTH 12.5 % (11.6-13.7)
[2017-08-06 06:47] LABS: CARBON DIOXIDE 27.5 mmol/L (21-32); CHLORIDE 107 mmol/L (98-107); CREATININE 0.7 mg/dL (0.6-1.3); GLUCOSE 97 mg/dL (74-106); POTASSIUM 3.5 mmol/L (3.5-5.1); SODIUM SERUM 142 mmol/L (136-145); UREA NITROGEN, BLOOD 14 mg/dL (7-18)
[2017-08-06] MEDS: BLOOD GLUCOSE MONITORING 1 DEV DEV FS SCH (06:53)
[2017-08-06 07:14] LABS: PROTHROMBIN TIME 12.2 secs (10.8-13.4)
--- NOTE | 2017-08-06 07:16 | NUR ---
ENDORSED PT TO DAY SHIFT RN FOR CONTINUITY OF CARE. PT IN STABLE CONDITION.
--- NOTE | 2017-08-06 07:20 | NUR ---
RECEIVED REPORT FROM ENGLISH LANGUAGE ARTS TEACHER NURSE, PT IS RESTING IN BED A/OX4, AMBULATES WITH ASSIST, IV IS ON THE RT AC, PATENT, INTACT, FLUSHING WELL, HEP LOCK, SKIN IS INTACT, NO S/S OF RESPIRATORY DISTRESS OR DISCOMFORT NOTED, DISCUSSED PLAN OF CARE WITH PT, PT VERBALIZED UNDERSTANDING, SAFETY/FALL PRECAUTIONS ARE IN PLACE, CALL LIGHT IS WITHIN REACH, WILL CONTINUE TO MONITOR.
[2017-08-06 07:52] LABS: WHITE BLOOD COUNT (AUTO) 3.8 K/uL (4.8-10.8)
[2017-08-06 08:00] VITALS: BP 136/79
[2017-08-06] MEDS: ASPIRIN 81 MG TAB.CHEW PO SCH (08:56)
[2017-08-06] MEDS: DILTIAZEM 60 MG TAB PO SCH (08:56)
[2017-08-06] MEDS: LISINOPRIL 10 MG TAB PO SCH (08:57)
[2017-08-06] MEDS: ISOSORBIDE DINITRATE 10 MG TAB PO SCH (08:57)
[2017-08-06] MEDS ORDERED: DOCUSATE SODIUM 100 MG GELCAP PO SCH (09:00)
--- NOTE | 2017-08-06 11:45 | NUR ---
DISCHARGE INSTRUCTIONS GIVEN, IV REMOVED, CATHETER TIP INTACT, ID WRIST BAND REMOVED, PATIENT STABLE UPON DISCHARGE, ACCOMPANIED BY HER DAUGHTER.
== END 2017-08-06 11:45 | disposition home or self-care (01) | DRG 249 ==
LOC: MED 15:37 → MTU 18:27
PROVIDERS: ADMIT Hospitalist; ATTEND Hospitalist
PROC: 3E0234Z Introduction of Serum, Toxoid and Vaccine into Muscle, Percutaneous Approach (ICD-10-PCS; principal; 2017-08-04)
DX: A08.4 Viral intestinal infection, unspecified (principal); I50.9 Heart failure, unspecified; I11.9 Hypertensive heart disease without heart failure; E11.9 Type 2 diabetes mellitus without complications; I48.2 Chronic atrial fibrillation; K21.9 Gastro-esophageal reflux disease without esophagitis; I25.10 Atherosclerotic heart disease of native coronary artery without angina pectoris; Z88.0 Allergy status to penicillin; I25.2 Old myocardial infarction; Z23 Encounter for immunization
CPT/HCPCS: 36415; 71010; 80048; 80053; 81003; 82550; 82553; 82948; 83735; 84484; 85025; 85610; 85730; 87081; 90658; 96361; 96374; 99285; J1815; J2270; J3490; J7030